=== PATIENT | female | born 1955 | race Hispanic/Latino ===

== ENCOUNTER → 2020-12-28 | Outpatient (CLI) | payer MEDICARE ==
[~2020-12-28] MED LIST: ATENOLOL PO; HUMIRA; LANSOPRAZOLE30 MG PO; LEVAQUIN500 MG PO; LORAZEPAM INJ 2 MG/ML VIAL ONE; MELOXICAM PO; METFORMIN HCL500 MG PO; NORCO 7.5-3251 EACH PO; PANTOPRAZOLE SL; PRAVASTATIN PO
== END ==
LOC: MRI 12:57
PROVIDERS: ATTEND Specialist
DX: M54.31 Sciatica, right side (principal); M43.16 Spondylolisthesis, lumbar region
CPT/HCPCS: 72148; J2060

== ENCOUNTER 2025-04-20 13:19 | Inpatient (IN) | payer MEDICARE ==
[~2025-04-20] VITALS: Ht 157.5 cm; Wt 68.9 kg
[~2025-04-20 13:19] MED LIST changes: +ANASTROZOLE1 MG PO; +ATENOLOL50 MG PO; -LORAZEPAM INJ 2 MG/ML VIAL ONE; +MELOXICAM15 MG PO; +MELOXICAM7.5 MG PO; +OTEZLA PO; +PRAVASTATIN SOD10 MG PO; +PREDNISONE5 MG PO; +[UNRECOGNIZED DRUG - REMARK] PO
[2025-04-20] MEDS ORDERED: SODIUM CHLORIDE 0.9% 1000ML 1,000 ML ONE (15:35)
[2025-04-20] MEDS ORDERED: SODIUM CHLORIDE 0.9% 100 ML ONE (15:35)
[2025-04-20] MEDS: SODIUM CHLORIDE 0.9% IV SCH (15:36)
[2025-04-20] MEDS ORDERED: SODIUM CHLORIDE 0.9% 250ML 0 ML ONE (17:12)
[2025-04-20] MEDS: POTASSIUM CHLORIDE 10MEQ/100ML 100 ML IV ONE (17:13)
[2025-04-20] MEDS ORDERED: DIPHENHYDRAMINE HCL 25 MG CAP ONE (23:22)
[2025-04-20] MEDS: DIPHENHYDRAMINE HCL 25 MG CAP PO ONE (23:22)
[2025-04-20] MEDS: SODIUM CHLORIDE 0.9% 1000ML 1,000 ML IV SCH (23:23)
[2025-04-21] VITALS (7 sets, daily range): BP systolic 113–126; BP diastolic 50–66; PULSE 82–95; RESP 15–20; TEMP 97.7–98.8; O2SAT 99–100
[2025-04-21] MEDS ORDERED: SODIUM BICARBO650 MG PO (09:17)
[2025-04-21] MEDS ORDERED: LOSARTAN POTASS25 MG PO (09:17)
[2025-04-21] MEDS ORDERED: CRESTOR40 MG PO (09:17)
[2025-04-21] MEDS ORDERED: JARDIANCE10 MG PO (09:17)
[2025-04-21 14:06] LABS: BASOPHILS % 0.2 % (0.0-1.0); EOSINOPHILS % 0.8 % (0.0-6.0); LYMPHOCYTES % 5.8 % (18.0-39.1); MONOCYTES % 3.0 % (4.4-11.3); NEUTROPHILS % 89.5 % (38.7-80.0); RED CELL DISTRIBUTION WIDTH 13.4 % (11.7-14.4)
[2025-04-21 14:37] LABS: EST GLOMERULAR FILTRATION RATE 61.0 ML/MIN (>=60)
[2025-04-21] MEDS ORDERED: HYDROCODONE/APAP 5MG-325MG TAB PO PRN (19:45)
[2025-04-21] MEDS ORDERED: ONDANSETRON HCL INJ 2MG/ML 2ML 2 MG/ML VIAL IV PRN (19:45)
[2025-04-21] MEDS ORDERED: DEXTROSE 50% SYRINGE 50 ML IV PRN (19:45)
[2025-04-21] MEDS ORDERED: ACETAMINOPHEN 325 MG TAB PO PRN (19:45)
[2025-04-21] MEDS: METHYLPREDNISOLONE SOD SUCC 40 MG/ML VIAL 1ML IV SCH (20:55)
[2025-04-21] MEDS: ATENOLOL 50 MG TAB PO SCH (20:55)
[2025-04-21] MEDS: POTASSIUM CHLORIDE 10MEQ EA PO ONE (20:56)
[2025-04-21] MEDS: INSULIN LISPRO 100 UNIT/1 ML 3ML VIAL SQ SCH (21:00)
[2025-04-22] VITALS (8 sets, daily range): BP systolic 99–115; BP diastolic 50–57; PULSE 76–89; RESP 16–18; TEMP 96–98.4; O2SAT 98–100
[2025-04-22 06:00] LABS: BASOPHILS % 0.2 % (0.0-1.0); EOSINOPHILS % 0.2 % (0.0-6.0); LYMPHOCYTES % 5.2 % (18.0-39.1); MONOCYTES % 2.2 % (4.4-11.3); NEUTROPHILS % 91.4 % (38.7-80.0); RED CELL DISTRIBUTION WIDTH 13.6 % (11.7-14.4)
[2025-04-22 06:37] LABS: EST GLOMERULAR FILTRATION RATE 69.0 ML/MIN (>=60)
[2025-04-22] MEDS: LOSARTAN POTASSIUM 25 MG TAB PO SCH (08:48)
[2025-04-22] MEDS: SODIUM BICARBONATE 650 MG TAB PO SCH (08:48)
[2025-04-22] MEDS: LORATADINE 10 MG TAB PO SCH (08:48)
[2025-04-22] MEDS: EMPAGLIFLOZIN 10 MG TABLET PO SCH (08:48)
[2025-04-22] MEDS: HYDROCORTISONE 1% CREAM 30 GM TUBE TOP SCH (16:42)
[2025-04-23] VITALS (7 sets, daily range): BP systolic 110–152; BP diastolic 52–67; PULSE 70–95; RESP 16–20; TEMP 97.7–98.1; O2SAT 96–100
[2025-04-23] MEDS: HYDROXYZINE HCL 10 MG TAB PO SCH (23:10)
[2025-04-23] MEDS ORDERED: HYDROXYZINE HCL 25 MG TAB PO PRN (23:15)
[2025-04-24] VITALS (7 sets, daily range): BP systolic 106–133; BP diastolic 55–62; PULSE 71–86; RESP 18–20; TEMP 97.4–98.2; O2SAT 98–100
[2025-04-24] MEDS: METHYLPREDNISOLONE SOD SUCC 40 MG/ML VIAL 1ML IV SCH ×2 (09:13→20:48)
[2025-04-24] MEDS ORDERED: DEXTROSE 50% SYRINGE 50 ML IV PRN (11:45)
[2025-04-24 13:57] LABS: EST GLOMERULAR FILTRATION RATE 68.0 ML/MIN (>=60)
[2025-04-24] MEDS: INSULIN LISPRO 100 UNIT/1 ML 3ML VIAL SQ SCH (16:30)
[2025-04-25] VITALS (8 sets, daily range): BP systolic 106–130; BP diastolic 53–65; PULSE 66–85; RESP 16–20; TEMP 97.4–98.1; O2SAT 98–100
[2025-04-25 06:43] LABS: BASOPHILS % 0.3 % (0.0-1.0); EOSINOPHILS % 0.5 % (0.0-6.0); LYMPHOCYTES % 7.7 % (18.0-39.1); MONOCYTES % 4.3 % (4.4-11.3); NEUTROPHILS % 85.9 % (38.7-80.0); RED CELL DISTRIBUTION WIDTH 14.5 % (11.7-14.4)
[2025-04-25 07:07] LABS: EST GLOMERULAR FILTRATION RATE 57.0 ML/MIN (>=60)
[2025-04-26] VITALS (9 sets, daily range): BP systolic 104–140; BP diastolic 48–71; PULSE 70–86; RESP 16–20; TEMP 97.3–98.1; O2SAT 97–100
[2025-04-26] MEDS: INSULIN GLARGINE 100 UNITS/ML VIAL SQ SCH (23:13)
[2025-04-26] MEDS ORDERED: HYDROCODONE/APAP 5MG-325MG TAB PO PRN (23:45)
[2025-04-27] VITALS (8 sets, daily range): BP systolic 112–137; BP diastolic 60–82; PULSE 67–79; RESP 16–20; TEMP 97.2–98.5; O2SAT 93–100
[2025-04-27 05:20] LABS: BASOPHILS % 0.2 % (0.0-1.0); EOSINOPHILS % 1.1 % (0.0-6.0); LYMPHOCYTES % 9.4 % (18.0-39.1); MONOCYTES % 4.2 % (4.4-11.3); NEUTROPHILS % 82.9 % (38.7-80.0); RED CELL DISTRIBUTION WIDTH 14.6 % (11.7-14.4)
[2025-04-27 05:38] LABS: EST GLOMERULAR FILTRATION RATE 64.0 ML/MIN (>=60)
[2025-04-27] MEDS: GLIPIZIDE 5 MG TAB ER PO SCH (08:05)
[2025-04-27] MEDS: FUROSEMIDE INJ 10 MG/ML 4 ML VIAL IV ONE ×2 (14:45→14:47)
[2025-04-27] MEDS: POTASSIUM CHLORIDE 10MEQ EA PO ONE ×2 (14:46→14:48)
[2025-04-27] MEDS: ENOXAPARIN SOD INJ 40 MG/0.4 ML SYR SC SCH (16:31)
[2025-04-27] MEDS: PREDNISONE 10 MG TAB PO SCH (16:31)
[2025-04-28] VITALS (8 sets, daily range): BP systolic 120–141; BP diastolic 50–71; PULSE 72–78; RESP 16–18; TEMP 97.5–99; O2SAT 95–100
[2025-04-28 05:35] LABS: BASOPHILS % 0.4 % (0.0-1.0); EOSINOPHILS % 1.7 % (0.0-6.0); LYMPHOCYTES % 15.4 % (18.0-39.1); MONOCYTES % 5.1 % (4.4-11.3); NEUTROPHILS % 74.8 % (38.7-80.0); RED CELL DISTRIBUTION WIDTH 14.3 % (11.7-14.4)
[2025-04-28 06:16] LABS: EST GLOMERULAR FILTRATION RATE 69.0 ML/MIN (>=60)
[2025-04-28 06:34] LABS: PHOSPHORUS 3.7 MG/DL (2.3-4.7)
[2025-04-28] MEDS: POTASSIUM CHLORIDE 10MEQ EA PO ONE (08:23)
[2025-04-28] MEDS ORDERED: IOPAMIDOL 370 MG/ML 100 ML INFUS..BTL INJ ONE (08:55)
[2025-04-29] MEDS: GLIPIZIDE 5 MG TAB ER PO SCH (08:34)
[2025-04-29 08:47] VITALS: BP 135/69; PULSE 74; RESP 18; TEMP 97.9; O2SAT 100
[2025-04-29 12:26] VITALS: BP 132/64; PULSE 75; RESP 18; TEMP 97.7; O2SAT 96
== END 2025-04-29 14:45 | disposition home or self-care (01) | DRG 607 ==
LOC: FSED 13:30 → ERHOLD 15:33 → MED/SURG2 04-21 09:21
PROVIDERS: ADMIT Internal Medicine; ATTEND Internal Medicine
DX: L27.0 Generalized skin eruption due to drugs and medicaments taken internally (principal); T82.898A Other specified complication of vascular prosthetic devices, implants and grafts, initial encounter; L03.313 Cellulitis of chest wall; D72.829 Elevated white blood cell count, unspecified; E11.65 Type 2 diabetes mellitus with hyperglycemia; E87.6 Hypokalemia; E78.5 Hyperlipidemia, unspecified; I10 Essential (primary) hypertension; R60.0 Localized edema; R53.81 Other malaise; T36.4X5A Adverse effect of tetracyclines, initial encounter; Y83.1 Surgical operation with implant of artificial internal device as the cause of abnormal reaction of the patient, or of later complication, without mention of misadventure at the time of the procedure; Z79.4 Long term (current) use of insulin; Z79.84 Long term (current) use of oral hypoglycemic drugs; Z95.828 Presence of other vascular implants and grafts; Z90.710 Acquired absence of both cervix and uterus; Z88.1 Allergy status to other antibiotic agents; Z88.3 Allergy status to other anti-infective agents; E66.9 Obesity, unspecified; Z68.27 Body mass index [BMI] 27.0-27.9, adult
CPT/HCPCS: 36415; 71260; 80048; 80053; 81003; 82948; 83036; 83605; 83735; 84100; 84443; 85025; 87086; 93971; 96372; 99252; 99284; J0696; J1650; J1938; J2919; J3410; J3480; J7030; J7050; J7512; Q9967